=== PATIENT | male | born 1960 | race Caucasian/White ===

== ENCOUNTER 2018-12-12 21:50 | Emergency (ER) | payer OTHER, SELFPAY ==
[~2018-12-12] VITALS: Ht 170.2 cm; Wt 80.4 kg
[2018-12-12] MEDS ORDERED: LORazepam 2 MG/ML VIAL (J2060) IV STA (21:59)
[2018-12-12] MEDS ORDERED: diphenhydrAMINE INJ 50MG/ML VIAL (J1200) IV STA (21:59)
--- NOTE | 2018-12-12 22:52 | REPVR ---
EXAM: CT Cervical Spine Without Contrast EXAM DATE/TIME: 12/12/2018 10:11 PM CLINICAL HISTORY: 58 years old, male; Injury or trauma; Fall; Initial encounter; Blunt trauma; Additional info: Head trauma/fall TECHNIQUE: Imaging protocol: Axial computed tomography images of the cervical spine without contrast. Coronal and sagittal reformatted images were created and reviewed. Radiation optimization: All CT scans at this facility use at least one of these dose optimization techniques: automated exposure control; mA and/or kV adjustment per patient size (includes targeted exams where dose is matched to clinical indication); or iterative reconstruction. COMPARISON: No relevant prior studies available. FINDINGS: Vertebrae: Mild degenerative changes lateral axial joint. Focal sclerosis at the tip of the odontoid process. Straightening of normal cervical lordosis. Discs/Spinal canal/Neural foramina: Disc space narrowing at C4-5 through C6-7 with intervertebral osteophytes. Severe foraminal stenosis on the right C5 and mild foraminal stenosis on the left. Severe bilateral foraminal stenosis at C6 secondary to uncinate joint hypertrophic changes. Disc osteophyte complexes at C5-6 and C6-7 without cord impingement. Soft tissues: Unremarkable. Lungs: Lung apices are normal. IMPRESSION: Degenerative spondylosis with multilevel foraminal stenosis and disc osteophyte complexes. No acute findings. Electronically signed by: Yong Raya On 12/12/2018 22:52:18 PM
--- NOTE | 2018-12-12 22:53 | REPVR ---
EXAM: CT Head Without Contrast EXAM DATE/TIME: 12/12/2018 10:11 PM CLINICAL HISTORY: 58 years old, male; Injury or trauma; Fall; Initial encounter; Blunt trauma (contusions or hematomas); Consciousness not specified; Additional info: Head trauma/fall TECHNIQUE: Imaging protocol: Axial computed tomography images of the head/brain without contrast. Radiation optimization: All CT scans at this facility use at least one of these dose optimization techniques: automated exposure control; mA and/or kV adjustment per patient size (includes targeted exams where dose is matched to clinical indication); or iterative reconstruction. COMPARISON: No relevant prior studies available. FINDINGS: Brain: There is no significant parenchymal volume loss. White matter changes are demonstrated in the subcortical, centrum semiovale and periventricular white matter consistent with small vessel white matter angiopathic gliosis. Ventricles: Normal. No ventriculomegaly. Bones/joints: Unremarkable. No acute fracture. Sinuses: Visualized sinuses are unremarkable. No acute sinusitis. Mastoid air cells: Visualized mastoid air cells are unremarkable. No mastoid effusion. Soft tissues: Unremarkable. IMPRESSION: There is no significant parenchymal volume loss. White matter changes are demonstrated in the subcortical, centrum semiovale and periventricular white matter consistent with small vessel white matter angiopathic gliosis. Electronically signed by: Yong Raya On 12/12/2018 22:53:16 PM
[2018-12-13 01:00] VITALS: BP 120/80
--- NOTE | 2018-12-13 07:57 | ECGEPIP ---
Stationary ECG Study [facility] - ED Test Date: 2018-12-12 Pat Name: MAURICE SALAZAR Department: Room: - Gender: M [employer]el Builder: [facility] : 1960 Requested By: LARRY Shoemaker Order Number: [id number] Reading MD: Reji Govea Measurements Intervals [place] Rate: 103 P: 46 AK: 146 QRS: 2 QRSD: 108 T: 30 QT: 328 QTc: 430 Interpretive Statements SINUS TACHYCARDIA INCOMPLETE RIGHT BUNDLE BRANCH BLOCK NO PRIORS FOR COMPARISON Electronically Signed On 12-13-2018 7:57:04 EDT by Reji Govea
--- NOTE | 2018-12-15 06:07 | ED PDOC ---
Post-Departure [facility] faxed ct head for fu. additionally pt sent certified letter. he needs to obtain a pcp for fu Jessica Berg MD December 15, 2018 06:07
== END 2018-12-13 01:23 | disposition home or self-care (01) ==
LOC: M ED 21:50
DX: F10.120 Alcohol abuse with intoxication, uncomplicated (principal); S00.03XA Contusion of scalp, initial encounter; S00.01XA Abrasion of scalp, initial encounter; W19.XXXA Unspecified fall, initial encounter; Y92.89 Other specified places as the place of occurrence of the external cause